=== PATIENT | male | born 1955 | race Caucasian/White ===

== ENCOUNTER → 2017-01-03 | Outpatient (REF) | payer BC ==
[2017-01-03 13:20] LABS: FOLATE 9.5 NG/ML (>5.4)
== END ==
LOC: M LAB REF 11:54
PROVIDERS: ATTEND Internal Medicine
DX: R41.0 Disorientation, unspecified (principal)

== ENCOUNTER 2017-05-02 15:22 | Emergency (ER) | payer BC, OTHER ==
[~2017-05-02] VITALS: Ht 182.9 cm; Wt 106.8 kg
[2017-05-02 15:23] VITALS: BP 138/87
[2017-05-02] MEDS ORDERED: LOSA50TA20 (15:33)
[2017-05-02] MEDS ORDERED: MULT1TAB18 PO (15:33)
[2017-05-02] MEDS ORDERED: ATOR1TAB21 (15:33)
[2017-05-02] MEDS ORDERED: VITA500T53 PO (15:33)
[2017-05-02] MEDS ORDERED: VITA2000 PO (15:33)
[2017-05-02] MEDS ORDERED: ASPI81CH PO (15:33)
[2017-05-02] MEDS ORDERED: CARB/LEVO (15:33)
[2017-05-02] MEDS ORDERED: LIDOCAINE W/EPINEPHRINE 1% 20ML VIAL SC ONE (15:45)
[2017-05-02] MEDS ORDERED: ADACEL/BOOSTRIX VACCINE (DIPHTH/PERTUSS/ACELL/TETANUS)0.5ML SYR (90715) IM ONE (15:45)
[2017-05-02] MEDS ORDERED: AUGM875T28 PO (16:16)
== END 2017-05-02 16:42 | disposition home or self-care (01) ==
LOC: M ED 15:22
DX: S91.011A Laceration without foreign body, right ankle, initial encounter (principal); W26.8XXA Contact with other sharp object(s), not elsewhere classified, initial encounter; Y92.099 Unspecified place in other non-institutional residence as the place of occurrence of the external cause; Y93.9 Activity, unspecified; Y99.9 Unspecified external cause status; I10 Essential (primary) hypertension; I73.9 Peripheral vascular disease, unspecified; Z79.82 Long term (current) use of aspirin; Z79.899 Other long term (current) drug therapy

== ENCOUNTER → 2017-05-23 | Outpatient (REF) | payer OTHER ==
[~2017-05-23] MED LIST: ASPI81CH PO; ATOR1TAB21; AUGM875T28 PO; CARB/LEVO; LOSA50TA20; MULT1TAB18 PO; VITA2000 PO; VITA500T53 PO
== END ==
LOC: M LAB REF 17:16
PROVIDERS: ATTEND Nurse Practitioner Family
DX: S81.811A Laceration without foreign body, right lower leg, initial encounter (principal); W18.30XA Fall on same level, unspecified, initial encounter; Y92.009 Unspecified place in unspecified non-institutional (private) residence as the place of occurrence of the external cause

== ENCOUNTER 2017-09-17 09:40 | Outpatient (RCR) | payer OTHER | END 2017-10-12 | LOC: M OT 09:40 → M ST 10-01 08:13 → M OT 10-08 08:46 → M ST 10-01 08:13 | DX: Z51.89 Encounter for other specified aftercare (principal); G20 Parkinson's disease ==

== ENCOUNTER 2017-10-14 08:39 | Outpatient (RCR) | payer OTHER | END 2017-11-12 | LOC: M OT 08:39 | DX: Z51.89 Encounter for other specified aftercare (principal); G20 Parkinson's disease ==

== ENCOUNTER → 2017-12-10 | Outpatient (REF) | payer OTHER ==
[2017-12-10 20:05] LABS: FOLATE 20.6 NG/ML; VITAMIN B12 LEVEL 754 PG/ML
== END ==
LOC: M LAB REF 18:19
DX: R41.3 Other amnesia (principal)

== ENCOUNTER → 2018-06-17 | Outpatient (REF) | payer MEDICARE, OTHER, SELFPAY ==
[2018-06-17 13:22] LABS: IRON (FE) 79 UG/DL (65-175); PERCENT SATURATION 28.7 % (19.7-50.0); TOTAL IRON BINDING CAPACITY 275 UG/DL (250-450)
== END ==
LOC: M LAB REF 12:15
DX: K91.2 Postsurgical malabsorption, not elsewhere classified (principal)
CPT/HCPCS: 83550

== ENCOUNTER 2019-02-23 08:58 | Day surgery (SDC) | payer MEDICARE ==
[~2019-02-23] VITALS: Ht 182.9 cm; Wt 113.1 kg
[~2019-02-23 08:58] MED LIST changes: -ASPI81CH PO; +ASPI81CH49 PO; +BIMA01SOL OD; +CARB25TA9 PO; -LOSA50TA20; +LOSA50TA88; +MULTCAP PO; +NS 1,000 ML IV ONE; +STOO1CAP PO; +VITA500T17 PO; -VITA500T53 PO
[2019-02-23] MEDS ORDERED: LIDOCAINE 2% INJ 100 MG/5 ML SDV (FOR ANES.) As Ordered ONE (10:47)
[2019-02-23] MEDS ORDERED: PROPOFOL 200 MG/20 ML VIAL As Ordered ONE ×2 (10:47→11:13)
--- NOTE | 2019-02-23 11:16 | ROOR ---
Patient Name: Marvin Carroll Procedure Date: 02/23/2019 10:39 AM Date of : 1955 Age: 63 Room: [facility] Gender: Male Note Status: Finalized Procedure: Colonoscopy to transverse colon(incomplete exam) Indications: Screening in patient at increased risk: Colorectal cancer in brother 60 or older Providers: Andrae Bailey MD Referring MD: TEE MAHAN JR, MD Requesting Provider: Medicines: Monitored Anesthesia Care Complications: No immediate complications. Procedure: Pre-Anesthesia Assessment: - The heart rate, respiratory rate, oxygen saturations, blood pressure, adequacy of pulmonary ventilation, and response to care were monitored throughout the procedure. The Colonoscope was introduced through the anus with the intention of advancing to the cecum. The scope was advanced to the transverse colon before the procedure was aborted. Medications were given. The patient tolerated the procedure well. The quality of the bowel preparation was fair. The colonoscopy was aborted due to significant looping. Applying abdominal pressure did not allow for the successful completion of the procedure. Findings: The perianal and digital rectal examinations were normal. Non-bleeding internal hemorrhoids were found during retroflexion. The hemorrhoids were small and Grade I (internal hemorrhoids that do not prolapse). Semi-liquid stool was found in the entire colon, precluding visualization. The exam was otherwise without abnormality. Impression: - Preparation of the colon was fair. - Non-bleeding internal hemorrhoids. - Stool in the entire examined colon. - The examination was otherwise normal. - No specimens collected. - The exam was suboptimal due to patient preparation. Recommendation: - Discharge patient to home. - Continue present medications. - Repeat colonoscopy in 5 years for screening purposes. - Perform a barium enema at appointment to be scheduled. Andrae Bailey MD Andrae Bailey MD 02/23/2019 11:16:12 AM Electronically signed by Andrae Bailey MD Number of Addenda: 0 Note Initiated On: 02/23/2019 10:39 AM Estimated Blood Loss: Estimated blood loss: none.
[2019-02-23 11:45] VITALS: BP 130/70
== END 2019-02-23 12:16 | disposition home or self-care (01) ==
LOC: M OPP 08:58
PROVIDERS: ATTEND Internal Medicine Gastroenterology
DX: Z12.11 Encounter for screening for malignant neoplasm of colon (principal); Z80.0 Family history of malignant neoplasm of digestive organs; K64.0 First degree hemorrhoids

== ENCOUNTER → 2019-06-22 | Outpatient (REF) | payer MEDICARE ==
[~2019-06-22] MED LIST changes: -NS 1,000 ML IV ONE
[2019-06-22 14:12] LABS: FOLATE 15.7 NG/ML
== END ==
LOC: M LAB REF 13:31
PROVIDERS: ATTEND Internal Medicine
DX: Z98.84 Bariatric surgery status (principal); Z79.82 Long term (current) use of aspirin; Z79.899 Other long term (current) drug therapy

== ENCOUNTER → 2019-12-23 | Outpatient (CLI) | payer MEDICARE | LOC: M PT 10:27 | PROVIDERS: ATTEND Orthopaedic Surgery | DX: Z01.818 Encounter for other preprocedural examination (principal); M13.861 Other specified arthritis, right knee ==

== ENCOUNTER 2020-03-13 16:30 | Inpatient (IN) | payer MEDICARE ==
[~2020-03-13] VITALS: Ht 182.9 cm; Wt 117.5 kg
[~2020-03-13 16:30] MED LIST changes: -ATOR1TAB21; +ATOR1TAB21 PO; -BIMA01SOL OD; +BIMA01SOL OU; +COLA100C5 PO; -LOSA50TA88; +LOSA50TA88 PO; +MELA10CA PO; +SM M250T PO; +VITAD1000T PO
--- NOTE | 2020-03-17 14:31 | HPE ---
DATE OF ADMISSION: 03/20/2020 ATTENDING PHYSICIAN: Dr. Harlan Boyce CHIEF COMPLAINT: Left knee pain and stiffness HISTORY: This is a pleasant 64-year-old male patient with progressively worsening left knee pain and stiffness that has failed to improve with conservative treatment. He has elected for surgical intervention for his continued symptoms. He has been consented for left total knee arthroplasty by Dr. Harlan Boyce. ALLERGIES: No known drug allergies. Current medications. Vitamin B12 500 mg one by mouth daily, vitamin D 3-1000 units one by mouth daily, aspirin 81 mg one by mouth daily, multivitamin one by mouth daily, losartan 25 mg half tablet one by mouth daily, stool softener 100 mg one daily, atorvastatin 20 mg one by mouth daily, carbidopa/levodopa 25/100 mg three times daily. PAST MEDICAL HISTORY: 1. Type 2 diabetes 2. Parkinson's disease. PAST SURGICAL HISTORY: Gastric bypass left shoulder arthroscopy, appendectomy, left knee scope. FAMILY HISTORY: Noncontributory. SOCIAL HISTORY: The patient is an occasional alcohol user, does not use any tobacco or nicotine products REVIEW OF SYSTEMS: Denies fever, chills, chest pain, shortness of breath, nausea, vomiting, diarrhea. Denies recent upper respiratory or urinary tract infection symptoms. PHYSICAL EXAMINATION: Height 6 feet, weight 260, temperature 98.6, blood pressure 118/72, pulse 56, respirations 16. He is normocephalic, atraumatic, in no acute distress. Neck is supple and nontender with no lymphadenopathy or JVD. S1-S2 auscultated with no murmurs, rubs or gallops. Lungs Clear to auscultation bilaterally with no wheezes, rales, rhonchi. Abdomen: Soft, nontender. The left knee shows intact overlying skin with no rashes or obvious deformity. Left lower extremity is well perfused with intact neurovascular status. LABORATORY DATA: White count 6.5, red blood count 4.75, hemoglobin 14, hematocrit 41.5, ESR 4, BUN 16, creatinine 0.79, PT 14.6, INR 1.17. CHEST X-RAY: No acute cardiopulmonary disease. ELECTROCARDIOGRAM (EKG): Normal sinus rhythm, LA conduction disturbance, first-degree AV block, left axis deviation, left bundle branch block. The patient had medical clearance appointment with Dr. Cook on 03/16/2020. This is not yet available for review on the chart awaiting medical optimization. IMPRESSION: Symptomatic left knee degenerative changes. PLAN: Consented for left knee total arthroplasty with Dr. Harlan Boyce. Pending optimization by Dr. Cook. He has been counseled to discontinue his daily 81 mg aspirin and has discussed what medications he needs to take on the morning of surgery. He will be nothing by mouth after midnight the night before the procedure.
[2020-03-20] VITALS (7 sets, daily range): BP systolic 111–154; BP diastolic 72–84
--- NOTE | 2020-03-20 12:24 | CR.PDOC ---
General Date of Consultation: Mar 20, 2020 Consultation REASON FOR CONSULTATION/CHIEF COMPLAINT: Medical management Who presented to [facility] for an elective orthopedic procedure HISTORY OF PRESENT ILLNESS: Patient is a 64-year-old male with a past medical history of Parkinsons disease, HTN, DLP and NIDDM2, who was presented to [facility] for an elective orthopedic procedure. Patient also Dr. Boyce for the last 1 year and has failed conservative measures. He was scheduled for an elective procedure and has received outpatient medical clearance via his primary care provider, Dr. Cook. Hospital services consult is for medical management. Patient seen pre-operatively. He denies any chest pain, shortness of breath, palpitations, nausea, vomiting, abdominal pain, constipation, diarrhea, or urinary discomfort. He denies any recent fevers or chills. Reports his appetite is normal and has had some weight gain. ALLERGIES: Please see below. HOME MEDICATIONS: Please see below. PAST MEDICAL HISTORY: Parkinsons disease, HTN, DLP and NIDDM2 PAST SURGICAL HISTORY: Gastric bypass 2014 Torn rotator cuff on left, status post arthroscopy Appendectomy Left knee arthroscopy FAMILY HISTORY: - Family history was reviewed and is noncontributory to this hospitalization SOCIAL HISTORY: - Denies the use of tobacco or illicit drugs; patient reports social alcohol use - Denies recent travel or sick contacts - Lives with - Occupation; retired director software quality assurance REVIEW OF SYSTEMS: 10 point review of systems complete, all negative otherwise stated in HPI PHYSICAL EXAMINATION: - Vitals: BP 178/102, HR 69, RR 18, Sat 98%RA, Temp 97.2F - General: Lying in bed, No acute distress, Speaking in full sentences, AAOx3 - HEENT: NC, AT, PERRLA, EOMI - CVS: RRR, +S1S2, - Murmurs / rubs / gallops - Lungs: Fair air entry bilaterally, No appreciable wheezing / rales / rhonchi - Abdomen: Soft, Non-distended, Non-tender - Extremities: No lower extremity edema, No calf tenderness - Neuro: No focal motor or sensory deficit - Skin: No visible rashes LABORATORY DATA: Please see below. ASSESSMENT/PLAN: Elective total left knee arthroplasty - Patient is presented to [facility] for an elective orthopedic procedure - Patient has reported received outpatient medical clearance from his primary care provider, Dr. Cook - Pain control, anticoagulation and physical therapy at the direction of orthopedic surgery Parkinsons disease - c/w Carbidopa / Levodopa HTN - c/w Losartan DLP - c/w Atorvastatin NIDDM2 - Will start insulin sliding scale Vitamin D deficiency - c/w supplementation DVT prophylaxis - As per orthopedic surgery Vital Signs/I&O Vital Signs Date Time Temp Pulse Resp B/P (MAP) Pulse Ox O2 Delivery O2 Flow Rate FiO2 03/20/20 11:58 97.2 69 18 178/102 (127) 98 Room Air Allergies Coded Allergies: No Known Allergies (Unverified , 03/09/20) Home Medications Scheduled Aspirin (Aspirin) 81 Mg Chw, 81 MG PO DAILY, (Reported) Atorvastatin Calcium (Atorvastatin Calcium) 20 Mg Tab, PO DAILY, #30 (Reported) Bimatoprost (Lumigan) 0.01% 2.5ML Drops, 1 DROP OU QHS for 30 Days, #2.5 (Reported) Carbidopa/Levodopa (Carbidopa-Levodopa 25-100 Tab) 1 Each Tablet, 1 TAB PO TID, (Reported) Cholecalciferol (Vitamin D3) (Vitamin D3) 1,000 Unit Tablet, 2,000 UNITS PO DAILY, (Reported) Cyanocobalamin (Vitamin B-12) (Vitamin B-12) 500 Mcg Tab, 2,500 MCG PO DAILY, (Reported) Docusate Sodium (Colace) 100 Mg Capsule, 100 MG PO DAILY, (Reported) Losartan Potassium (Losartan Potassium) 50 Mg Tab, 25 MG PO DAILY, #15 (Reported) Magnesium (Magnesium) 250 Mg Tablet, 250 MG PO DAILY, (Reported) Melatonin (Melatonin) 10 Mg Capsule, 20 MG PO QHS, (Reported) Multivitamin (Multivitamins) 1 Each Capsule, 1 CAP PO DAILY, (Reported) RIVER KWONG MD Mar 20, 2020 12:24
[2020-03-20] MEDS ORDERED: GLUCAGON INJ 1MG VIAL SC PRN (12:30)
[2020-03-20] MEDS ORDERED: DEXTROSE 50% 50 ML SYRINGE IV PRN (12:30)
[2020-03-20] MEDS ORDERED: GLUCOSE 4GM CHEW TABLET PO PRN (12:30)
[2020-03-20] MEDS ORDERED: ONDANSETRON 4MG/2ML VIAL As Ordered ONE (12:31)
[2020-03-20] MEDS ORDERED: LIDOCAINE 2% 100MG/5ML SDV (FOR ANES.) As Ordered ONE (12:31)
[2020-03-20] MEDS ORDERED: propofoL 200 MG/20 ML VIAL As Ordered ONE ×2 (12:31→14:41)
[2020-03-20] MEDS ORDERED: MIDAZOLAM INJ 2MG/2ML VIAL (J2250 PER 1MG) As Ordered ONE ×2 (12:31→13:26)
[2020-03-20] MEDS ORDERED: fentaNYL 100 MCG/2 ML INJECTION (J3010) As Ordered ONE ×2 (12:31→13:26)
[2020-03-20] MEDS ORDERED: PILL CUTTER 1 EACH XX PRN (12:45)
[2020-03-20] MEDS ORDERED: ceFAZolin SOD 2 GM in IV 1 EA IV ONE (12:45)
[2020-03-20] MEDS ORDERED: ceFAZolin SOD 1 GM in D5W MINI-BAG PLUS 50 ML IV ONE (12:45)
[2020-03-20] MEDS ORDERED: TRANEXAMIC ACID 100 MG/ML 10ML VIAL As Ordered ONE (13:46)
[2020-03-20] MEDS ORDERED: EPINEPHrine INJ 1 MG/ML 1ML AMP As Ordered ONE (13:47)
[2020-03-20] MEDS ORDERED: ceFAZolin 1GM VIAL (J0690 PER 500MG) As Ordered ONE (13:47)
[2020-03-20] MEDS ORDERED: BUPIVACAINE LIPOSOME/PF 1.3% 20ML VIAL (13.3MG/ML)(EXPAREL)(C9290 PER1MG) As Ordered ONE (13:47)
[2020-03-20] MEDS ORDERED: MIDAZOLAM INJ 2MG/2ML VIAL (J2250 PER 1MG) IV PRN (14:15)
[2020-03-20] MEDS ORDERED: fentaNYL 100 MCG/2 ML INJECTION (J3010) IV PRN ×2 (14:15→15:45)
[2020-03-20] MEDS ORDERED: ACETAMINOPHEN 1000MG 100ML IV BTL (OFIRMEV) (J0131 PER 10MG) As Ordered ONE (14:41)
[2020-03-20] MEDS ORDERED: LIDOCAINE 1% MDV 20ML VIAL ONE (15:42)
[2020-03-20] MEDS ORDERED: ROPIvacaine 0.5% 30ML INJECTION (J2795 PER 1MG) ONE (15:42)
[2020-03-20] MEDS ORDERED: dexameTHASONE 10MG/1ML VIAL PRES.FREE (J1100 PER 1MG) ONE (15:42)
[2020-03-20] MEDS ORDERED: oxyCODONE 5MG TAB PO PRN (15:45)
[2020-03-20] MEDS ORDERED: ONDANSETRON 4MG/2ML VIAL IV PRN ×2 (15:45→16:00)
[2020-03-20] MEDS ORDERED: LR 1,000 ML IV SCH (15:45)
[2020-03-20] MEDS ORDERED: MORPHINE 4 MG/ML 1ML VIAL/SYRINGE (J2270) IV PRN (16:00)
[2020-03-20] MEDS ORDERED: ACETAMINOPHEN TAB 650MG DOSE (2X325MG) PO PRN (16:00)
[2020-03-20] MEDS ORDERED: PERCOCET 5MG/325MG TAB PO PRN (16:00)
[2020-03-20] MEDS ORDERED: MORPHINE 2 MG/ML 1ML VIAL (J2270) IV PRN (16:00)
[2020-03-20] MEDS: LR 1,000 ML IV SCH (16:15)
[2020-03-20] MEDS: HumaLOG INSULIN (NovoLOG) PER UNIT SC SCH (17:30)
[2020-03-20] MEDS: SINEMET 25-100 MG TAB PO SCH (18:35)
[2020-03-20] MEDS: ATORVASTATIN 20 MG TAB PO SCH (18:35)
[2020-03-20] MEDS ORDERED: LATANOPROST 0.005% OPHTH SOLN 2.5 ML OU SCH (21:00)
[2020-03-20] MEDS ORDERED: HumaLOG INSULIN (NovoLOG) PER UNIT SC SCH (21:00)
[2020-03-20] MEDS: ceFAZolin SOD 2 GM in IV 1 EA IV SCH (21:28)
[2020-03-20] MEDS: ceFAZolin SOD 1 GM in D5W MINI-BAG PLUS 50 ML IV SCH (22:14)
[2020-03-20] MEDS: PERCOCET 5MG/325MG TAB PO PRN (22:42)
[2020-03-21 02:00] VITALS: BP 123/74
--- NOTE | 2020-03-21 02:11 | REP ---
LEFT KNEE, TWO VIEWS: Two views of the left knee performed. Total knee prosthesis is placed and is in good position. Osseous structures are well aligned. Metallic skin graciela are seen anteriorly. Electronically Signed by Raymundo Cassidy MD 03/22/2020 09:45 P
[2020-03-21] MEDS: PERCOCET 5MG/325MG TAB PO PRN ×2 (02:39→08:37)
[2020-03-21] MEDS: ceFAZolin SOD 2 GM in IV 1 EA IV SCH (05:25)
[2020-03-21] MEDS: LR 1,000 ML IV SCH (05:35)
[2020-03-21 06:00] VITALS: BP 125/76
[2020-03-21] MEDS: SINEMET 25-100 MG TAB PO SCH ×2 (06:12→12:44)
[2020-03-21] MEDS: ceFAZolin SOD 1 GM in D5W MINI-BAG PLUS 50 ML IV SCH (06:13)
[2020-03-21 06:57] LABS: BASO % 0.1 % (0.0-1.0); HEMOGLOBIN 12.3 g/dl (13.5-17.5); LYMPH # 1.2 10^3/uL (1.5-5.0); LYMPH % 10.9 % (24.0-44.0); MEAN CORPUSCULAR HEMOGLOBIN 29.2 pg (27.0-33.0); MEAN CORPUSCULAR HGB CONC 33.2 g/dl (32.0-36.5); MEAN CORPUSCULAR VOLUME 87.9 fl (80.0-96.0); MONO % 8.7 % (0.0-5.0); NEUTROPHILS # 8.9 10^3/uL (1.5-8.5); NEUTROPHILS % 79.9 % (36.0-66.0); PLATELET COUNT, AUTOMATED 196 10^3/uL (150-450); RED BLOOD COUNT 4.21 10^6/uL (4.30-6.10); WHITE BLOOD COUNT 11.2 10^3/uL (4.0-10.0)
[2020-03-21] MEDS ORDERED: XARE10TA PO (07:11)
[2020-03-21] MEDS ORDERED: LEVA1TAB2 PO (07:11)
[2020-03-21] MEDS ORDERED: PERC5TAB12 PO (07:11)
[2020-03-21 07:23] LABS: BLOOD UREA NITROGEN 21 MG/DL (7-18); CALCIUM LEVEL 8.6 MG/DL (8.8-10.2); CARBON DIOXIDE LEVEL 26 MEQ/L (21-32); CHLORIDE LEVEL 107 MEQ/L (98-107); CREATININE FOR GFR 0.79 MG/DL (0.70-1.30); GLOMERULAR FILTRATION RATE > 60.0 (>49); GLUCOSE, FASTING 123 MG/DL (70-100); MAGNESIUM LEVEL 1.8 MG/DL (1.8-2.4); PHOSPHORUS LEVEL 3.9 MG/DL (2.5-4.9); POTASSIUM SERUM 4.2 MEQ/L (3.5-5.1); SODIUM LEVEL 139 MEQ/L (136-145)
[2020-03-21] MEDS: HumaLOG INSULIN (NovoLOG) PER UNIT SC SCH ×2 (07:30→12:00)
[2020-03-21 08:36] VITALS: BP 125/76
[2020-03-21] MEDS: ATORVASTATIN 20 MG TAB PO SCH (08:37)
[2020-03-21] MEDS ORDERED: VITAMIN D 1,000 INTERNATIONAL UNITS TABLET PO SCH (09:00)
[2020-03-21] MEDS ORDERED: MIRALAX *UNIT DOSE* 17GM PACKET PO SCH (09:00)
[2020-03-21] MEDS ORDERED: CYANOCOBALAMIN 500 MCG TAB PO SCH (09:00)
[2020-03-21] MEDS ORDERED: LOSARTAN 50MG TABLET PO SCH (09:00)
[2020-03-21] MEDS ORDERED: DOCUSATE SODIUM 100 MG CAP PO SCH (09:00)
[2020-03-21] MEDS ORDERED: MULTIVITAMINS/MINERALS THERAP 1 TAB PO SCH (09:00)
[2020-03-21] MEDS ORDERED: MOM 30ML SUSPENSION UDC PO SCH (09:00)
[2020-03-21 10:00] VITALS: BP 124/79
[2020-03-21] MEDS ORDERED: RIVAROXABAN 10 MG TAB (XARELTO) PO SCH (18:00)
[2020-03-22] MEDS ORDERED: LevoFLOXacin 500 MG TABLET PO SCH (06:00)
--- NOTE | 2020-03-23 17:56 | RO ---
DATE OF PROCEDURE: 03/20/2020 PREOPERATIVE DIAGNOSIS: Left knee osteoarthritis. POSTOPERATIVE DIAGNOSIS: (dictation cut off). PROCEDURE: Left total knee arthroplasty using an Attune rotating platform posterior stabilized size 6 femur, size 6 tibia, 10 polyethylene, 38 patellar button. SURGEON: Harlan Boyce MD ONLINE MERCHANDISING MANAGER: ENMA Diaz ANESTHESIA: Spinal ESTIMATED BLOOD LOSS: Less than 50 mL. COMPLICATIONS: None. INDICATIONS: 64-year-old morbidly obese gentleman with left knee pain and severe arthritis. He wished to go ahead with a knee replacement. DESCRIPTION OF PROCEDURE: The patient was taken to the operating room, placed in supine position after spinal anesthesia was induced. The left lower extremity was prepped and draped in the usual sterile fashion. A time-out was performed. I then created a longitudinal incision after we inflated the tourniquet, sharply dissected down through the subcutaneous tissue, controlled hemostasis with the cautery, did a medial parapatellar arthrotomy per routine, everted the patella, flexed the knee up and removed osteophytes with a rongeur, followed by the intramedullary guide set at 5 degrees of valgus and 9 mm cut. The distal femoral cut was made in the usual fashion, protecting soft tissues. I sized the femur to be a 6 and made the remaining cuts off the cutting block. The excess bone was removed. I then prepared the tibia. The tibial alignment guide was placed, and the appropriate amount of valgus and posterior slope were dialed in. This was pinned in place about 4 mm off the low side. I then made the proximal tibial cut, and the medial side was quite sclerotic. The [employer] group leader was then used for removal of soft tissue and bone from either side of the knee. The box cutting guide was then secured, and the remaining three cuts were made for the box cut. I had anticipated using a posterior stabilized due to his significant deformity and translation of his knee on the x-ray. I then prepared the tibia, size 6 tray fit nicely. This was secured down, drilled, broached, and the trial components were then placed. I was very pleased with the size 10 polyethylene, the alignment position was excellent. I then freehand cut the patella, removing about 7 or 8 mm of bone, sized to be a 38. Drill holes were placed in the end of the femur. I then removed the trial components and irrigated copiously, placed the Exparel in the deep tissues. The regional administrative assistant prepared the bone cement in the modern technique. Then cemented on all the components, placed the polyethylene in, cemented on the patellar button, which had been trialed previously and tracked very nicely with a size 38. All excess bone cement had been removed. I irrigated again copiously as I had multiple times prior to this. We then removed the patellar clamp once the cement had hardened. I closed the deep layer with #1 Vicryl suture and running Stratafix suture for a watertight closure. Put the knee through a range of motion, and the patella was tracking nicely, and there was no clicking. There was excellent motion and stability. I let the tourniquet down. Once the cement had hardened, I irrigated and then closed the subcu with #2-0 Vicryl, the skin with graciela. A sterile dressing was applied, and he was taken to the recovery room in stable condition. There were no known complications. The plan will be routine postop. The regional administrative assistant was instrumental in holding retractors and assisting in mixing the bone cement and assisting in wound closure. This is coded as an unusually difficult procedure. The patient had significant obesity. He had significant translation of his tibia on this femur. This made balancing the tissues more difficult. Exposure was more difficult.
== END 2020-03-21 14:05 | disposition home or self-care (01) | DRG 470 ==
LOC: M OR 03-20 11:15 → M MS5PR 03-20 16:05
PROVIDERS: ADMIT Orthopaedic Surgery; ATTEND Orthopaedic Surgery
PROC: 0SRD0J9 Replacement of Left Knee Joint with Synthetic Substitute, Cemented, Open Approach (ICD-10-PCS; principal; 2020-03-20 14:15)
DX: M17.12 Unilateral primary osteoarthritis, left knee (principal); E11.9 Type 2 diabetes mellitus without complications; G20 Parkinson's disease; Z79.899 Other long term (current) drug therapy; Z79.82 Long term (current) use of aspirin; I10 Essential (primary) hypertension; E55.9 Vitamin D deficiency, unspecified

== ENCOUNTER → 2020-03-15 | Outpatient (CLI) | payer MEDICARE ==
[~2020-03-15] MED LIST changes: +LEVA1TAB2 PO; +PERC5TAB12 PO; +XARE10TA PO
[2020-03-15 14:59] LABS: HEMATOCRIT 41.5 % (42.0-52.0); MEAN CORPUSCULAR HEMOGLOBIN 29.5 pg (27.0-33.0); MEAN CORPUSCULAR HGB CONC 33.7 g/dl (32.0-36.5); MEAN CORPUSCULAR VOLUME 87.4 fl (80.0-96.0); PLATELET COUNT, AUTOMATED 216 10^3/uL (150-450); RED BLOOD COUNT 4.75 10^6/uL (4.30-6.10); WHITE BLOOD COUNT 6.5 10^3/uL (4.0-10.0)
[2020-03-15 15:13] LABS: INR 1.17; PROTHROMBIN TIME 14.6 SECONDS (11.8-14.0)
[2020-03-15 15:21] LABS: ALBUMIN 3.6 GM/DL (3.2-5.2); ALT/SGPT 12 U/L (12-78); BILIRUBIN,TOTAL 0.6 MG/DL (0.2-1.0); BLOOD UREA NITROGEN 16 MG/DL (7-18); CALCIUM LEVEL 8.8 MG/DL (8.8-10.2); CARBON DIOXIDE LEVEL 31 MEQ/L (21-32); CHLORIDE LEVEL 106 MEQ/L (98-107); CREATININE FOR GFR 0.79 MG/DL (0.70-1.30); GLOMERULAR FILTRATION RATE > 60.0 (>49); GLUCOSE, FASTING 120 MG/DL (70-100); POTASSIUM SERUM 3.9 MEQ/L (3.5-5.1); SODIUM LEVEL 141 MEQ/L (136-145); TOTAL PROTEIN 7.1 GM/DL (6.4-8.2)
[2020-03-15 15:28] LABS: ERYTHROCYTE SEDIMENTATION RATE 4 mm/hr (0-20)
--- NOTE | 2020-03-15 16:12 | REP ---
REASON: Preop. FINDINGS: The superior mediastinal structures are midline. The cardiac silhouette is unremarkable in size, shape, and position. The diaphragmatic surfaces of the lungs are regular, and the costophrenic angles are clear. The pulmonary gutierrez are clear. The imaged osseous structures are intact. IMPRESSION: There is no acute cardiopulmonary disease. Electronically Signed by Mark Hodgson DO 03/15/2020 04:56 P
--- NOTE | 2020-03-16 08:42 | ECGEPIP ---
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 First-degree AV block. Left axis deviation. Left bundle branch block No prior tracing for comparison. Clincal correlation advised Electronically Signed on 03-16-2020 8:41:43 EDT by Miguel Paul
== END ==
LOC: M LAB 14:29
PROVIDERS: ATTEND Orthopaedic Surgery
DX: Z01.818 Encounter for other preprocedural examination (principal); M17.12 Unilateral primary osteoarthritis, left knee

== ENCOUNTER → 2020-03-17 | Outpatient (CLI) | payer MEDICARE | LOC: M LABSMTC 10:55 | PROVIDERS: ATTEND Anesthesiology | DX: Z01.818 Encounter for other preprocedural examination (principal); Z11.59 Encounter for screening for other viral diseases ==

== ENCOUNTER → 2020-03-28 | Outpatient (CLI) | payer MEDICARE ==
[~2020-03-28] MED LIST changes: +D31000TA2 PO; -VITAD1000T PO
[2020-03-28 11:55] LABS: BASO # 0.1 10^3/uL (0.0-0.2); BASO % 0.5 % (0.0-1.0); EOS # 0.2 10^3/uL (0.0-0.5); EOS % 1.5 % (0.0-3.0); HEMATOCRIT 36.7 % (42.0-52.0); HEMOGLOBIN 11.8 g/dl (13.5-17.5); LYMPH # 1.4 10^3/uL (1.5-5.0); LYMPH % 14.3 % (24.0-44.0); MEAN CORPUSCULAR HEMOGLOBIN 28.6 pg (27.0-33.0); MEAN CORPUSCULAR HGB CONC 32.2 g/dl (32.0-36.5); MEAN CORPUSCULAR VOLUME 89.1 fl (80.0-96.0); MONO # 0.9 10^3/uL (0.0-0.8); MONO % 8.7 % (0.0-5.0); NEUTROPHILS # 7.3 10^3/uL (1.5-8.5); NEUTROPHILS % 74.3 % (36.0-66.0); PLATELET COUNT, AUTOMATED 265 10^3/uL (150-450); RED BLOOD COUNT 4.12 10^6/uL (4.30-6.10); WHITE BLOOD COUNT 9.9 10^3/uL (4.0-10.0)
[2020-03-28 13:33] LABS: ERYTHROCYTE SEDIMENTATION RATE 43 mm/hr (0-20)
== END ==
LOC: M PLALAB 11:05
PROVIDERS: ATTEND Physician Assistant Surgical
DX: M79.662 Pain in left lower leg (principal)

== ENCOUNTER → 2020-03-31 | Outpatient (CLI) | payer MEDICARE | LOC: M PLALAB 09:14 | PROVIDERS: ATTEND Physician Assistant Surgical | DX: Z47.1 Aftercare following joint replacement surgery (principal) ==

== ENCOUNTER 2020-04-14 22:46 | Emergency (ER) | payer MEDICARE ==
[~2020-04-14] VITALS: Ht 177.8 cm; Wt 118.2 kg
[~2020-04-14 22:46] MED LIST changes: -D31000TA2 PO; +VITAD1000T PO
[2020-04-15] MEDS ORDERED: LACTULOSE 20 GM/30 ML SYRUP UD PO ONE
[2020-04-15] MEDS ORDERED: GLYCERIN ADULT SUPP PR ONE (01:00)
[2020-04-15 02:11] VITALS: BP 156/90
== END 2020-04-15 02:16 | disposition home or self-care (01) ==
LOC: M ED 22:46
DX: K59.00 Constipation, unspecified (principal); I10 Essential (primary) hypertension; E78.00 Pure hypercholesterolemia, unspecified; E11.9 Type 2 diabetes mellitus without complications; Z86.718 Personal history of other venous thrombosis and embolism; G20 Parkinson's disease; Z98.84 Bariatric surgery status

== ENCOUNTER → 2020-05-31 | Outpatient (CLI) | payer MEDICARE ==
[~2020-05-31] MED LIST changes: +D31000TA2 PO; -VITAD1000T PO
== END ==
LOC: M LABSMTC 12:45
PROVIDERS: ATTEND Ophthalmology
DX: Z20.828 Contact with and (suspected) exposure to other viral communicable diseases (principal)
CPT/HCPCS: C9803; U0003

== ENCOUNTER → 2020-09-15 | Outpatient (REF) | payer MEDICARE ==
[2020-09-15 13:29] LABS: IRON (FE) 56 UG/DL (65-175); PERCENT SATURATION 17.3 % (19.7-50.0); TOTAL IRON BINDING CAPACITY 323 UG/DL (250-450)
[2020-09-15 13:36] LABS: FOLATE 20.6 NG/ML; VITAMIN B12 LEVEL > 2000 PG/ML
== END ==
LOC: M LAB REF 12:05
PROVIDERS: ATTEND Internal Medicine
DX: Z98.84 Bariatric surgery status (principal)

== ENCOUNTER 2020-11-20 19:10 | Emergency (ER) | payer MEDICARE ==
[~2020-11-20] VITALS: Ht 182.9 cm; Wt 123.5 kg
[2020-11-20 20:10] LABS: BASO # 0.1 10^3/uL (0.0-0.2); BASO % 0.9 % (0.0-1.0); EOS # 0.2 10^3/uL (0.0-0.5); EOS % 2.6 % (0.0-3.0); HEMATOCRIT 42.8 % (42.0-52.0); HEMOGLOBIN 13.8 g/dl (13.5-17.5); LYMPH # 2.3 10^3/uL (1.5-5.0); LYMPH % 39.6 % (24.0-44.0); MEAN CORPUSCULAR HEMOGLOBIN 28.2 pg (27.0-33.0); MEAN CORPUSCULAR HGB CONC 32.2 g/dl (32.0-36.5); MEAN CORPUSCULAR VOLUME 87.3 fl (80.0-96.0); MONO # 0.6 10^3/uL (0.0-0.8); MONO % 9.7 % (0.0-5.0); NEUTROPHILS # 2.7 10^3/uL (1.5-8.5); PLATELET COUNT, AUTOMATED 195 10^3/uL (150-450); WHITE BLOOD COUNT 5.8 10^3/uL (4.0-10.0)
[2020-11-20 20:34] LABS: ALBUMIN 3.8 GM/DL (3.2-5.2); ALT/SGPT 9 U/L (12-78); BILIRUBIN,DIRECT 0.2 MG/DL (0.0-0.2); BILIRUBIN,TOTAL 0.5 MG/DL (0.2-1.0); BLOOD UREA NITROGEN 22 MG/DL (7-18); CALCIUM LEVEL 9.3 MG/DL (8.8-10.2); CARBON DIOXIDE LEVEL 28 MEQ/L (21-32); CHLORIDE LEVEL 106 MEQ/L (98-107); CK-MB VALUE MASS 1.8 NG/ML (<3.6); CPK CREATINE PHOSPHOKINASE 128 U/L (39-308); GLOMERULAR FILTRATION RATE > 60.0 (>49); GLUCOSE, FASTING 93 MG/DL (70-100); LIPASE 198 U/L (73-393); MB/CK RELATIVE INDEX 1.41 (< OR =4); POTASSIUM SERUM 4.2 MEQ/L (3.5-5.1); SODIUM LEVEL 141 MEQ/L (136-145); TOTAL PROTEIN 7.2 GM/DL (6.4-8.2); TROPONIN I < 0.02 NG/ML (< 0.10)
--- NOTE | 2020-11-20 20:48 | REPVR ---
PROCEDURE INFORMATION: Exam: XR Chest, 1 View Exam date and time: 11/20/2020 8:16 PM Age: 65 years old Clinical indication: Chest pain; Type not specified TECHNIQUE: Imaging protocol: XR of the chest Views: 1 view. COMPARISON: CR Chest, 2 view PA, Lat 03/15/2020 3:01 PM FINDINGS: Lungs: Unremarkable. No consolidation. Pleural spaces: Unremarkable. No pleural effusion. No pneumothorax. Heart/Mediastinum: Stable mild cardiomegaly. Diaphragm: Stable eventration of the left hemidiaphragm. Bones/joints: Unremarkable. IMPRESSION: Stable chest. No acute findings. Electronically signed by: Balaji Sage On 11/20/2020 20:48:09 PM
[2020-11-20 22:38] LABS: CK-MB VALUE MASS 1.4 NG/ML (<3.6); CPK CREATINE PHOSPHOKINASE 113 U/L (39-308); MB/CK RELATIVE INDEX 1.24 (< OR =4); TROPONIN I < 0.02 NG/ML (< 0.10)
[2020-11-20 22:45] VITALS: BP 153/84
--- NOTE | 2020-11-21 08:57 | ECGEPIP ---
[facility] - ED Test Date: 2020-11-20 Pat Name: MICKI LESTER Department: Room: - Gender: Male Personal Banking Officer: DIANA : 1955 Requested By: MARY ELLEN Parham Order Number: [id number] Reading MD: Radha Kang Measurements Intervals [place] Rate: 76 P: 42 IN: 222 QRS: -32 QRSD: 163 T: 118 QT: 424 QTc: 478 Interpretive Statements SINUS RHYTHM WITH FIRST DEGREE AV BLOCK MARKED LEFT AXIS DEVIATION LEFT BUNDLE BRANCH BLOCK SIMILAR 03/15/20 Electronically Signed on 11-21-2020 8:56:59 EST by Radha Kang
--- NOTE | 2020-11-21 08:59 | ECGEPIP ---
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
== END 2020-11-20 23:03 | disposition home or self-care (01) ==
LOC: M ED 19:10
DX: R07.89 Other chest pain (principal); I44.7 Left bundle-branch block, unspecified; I10 Essential (primary) hypertension; I25.10 Atherosclerotic heart disease of native coronary artery without angina pectoris; G20 Parkinson's disease; Z79.899 Other long term (current) drug therapy; Z98.84 Bariatric surgery status; Z95.1 Presence of aortocoronary bypass graft

== ENCOUNTER 2021-05-25 08:26 | Outpatient (RCR) | payer MEDICARE ==
[~2021-05-25 08:26] MED LIST changes: +DOCU240C41 PO; -STOO1CAP PO
== END 2021-06-12 ==
LOC: M ST 08:26
PROVIDERS: ATTEND Physician Assistant Medical
DX: G20 Parkinson's disease (principal); R47.89 Other speech disturbances

== ENCOUNTER → 2021-06-20 | Outpatient (REF) | payer MEDICARE ==
[2021-06-20 22:38] LABS: APPEARANCE, URINE CLOUDY (CLEAR); BACTERIA, URINE AUTO 2+ (NEGATIVE); BILIRUBIN, URINE AUTO NEGATIVE (NEGATIVE); BLOOD, URINE BLOOD 3+ (NEGATIVE); COLOR, URINE YELLOW (YELLOW); GLUCOSE, URINE (UA) AUTO NEGATIVE (NEGATIVE); KETONE, URINE AUTO NEGATIVE (NEGATIVE); LEUKOCYTE ESTERASE, URINE AUTO 3+ (NEGATIVE); NITRITE, URINE AUTO POSITIVE (NEGATIVE); PROTEIN, URINE AUTO 2+ mg/dL (NEGATIVE); RBC, URINE AUTO TNTC /HPF (0-3); SPECIFIC GRAVITY URINE AUTO 1.018 (1.002-1.035); SQUAMOUS EPITHELIAL CELL UR AU 3 /HPF (0-6); WBC, URINE AUTO TNTC /HPF (0-3)
== END ==
LOC: M LAB REF 22:10
PROVIDERS: ATTEND Physician Assistant
DX: R30.0 Dysuria (principal)

== ENCOUNTER 2021-07-09 12:28 | Outpatient (RCR) | payer MEDICARE | END 2021-07-12 | LOC: M ST 12:28 | PROVIDERS: ATTEND Physician Assistant Medical | DX: G20 Parkinson's disease (principal); R49.0 Dysphonia ==

== ENCOUNTER → 2021-07-11 | Outpatient (REF) | payer MEDICARE | LOC: M LAB REF 16:38 | PROVIDERS: ATTEND Nurse Practitioner Adult Health | DX: N30.01 Acute cystitis with hematuria (principal) ==

== ENCOUNTER 2021-08-10 13:13 | Outpatient (RCR) | payer MEDICARE | END 2021-08-12 | LOC: M PT 13:13 | PROVIDERS: ATTEND Physician Assistant Medical | DX: G20 Parkinson's disease (principal) ==

== ENCOUNTER 2021-08-27 08:30 | Outpatient (RCR) | payer MEDICARE ==
[~2021-08-27 08:30] MED LIST changes: +LOSA50TA28 PO; -LOSA50TA88 PO
== END 2021-09-11 ==
LOC: M PT 08:30
PROVIDERS: ATTEND Physician Assistant Medical
DX: G20 Parkinson's disease (principal); R53.1 Weakness

== ENCOUNTER → 2021-09-28 | Outpatient (REF) | payer MEDICARE ==
[2021-09-28 14:01] LABS: PERCENT SATURATION 19.5 % (19.7-50.0)
[2021-09-28 14:10] LABS: FOLATE 17.9 NG/ML
== END ==
LOC: M LAB REF 12:13
PROVIDERS: ATTEND Internal Medicine
DX: Z98.84 Bariatric surgery status (principal)

== ENCOUNTER → 2022-06-24 | Outpatient (REF) | payer MEDICARE ==
[~2022-06-24] MED LIST changes: -D31000TA2 PO; +VITA100093 PO
[2022-06-24 22:30] LABS: APPEARANCE, URINE MANUAL CLEAR (CLEAR); COLOR, URINE MANUAL YELLOW (YELLOW); SPECIFIC GRAVITY,URINE MANUAL 1.025 (1.002-1.035)
[2022-06-24 22:31] LABS: BILIRUBIN, URINE MANUAL NEGATIVE (NEGATIVE); BLOOD URINE MANUAL NEGATIVE (NEGATIVE); GLUCOSE, URINE (UA) MANUAL 4+(1000 MG/DL) mg/dL (NEGATIVE); KETONE, URINE MANUAL 1+ mg/dL (NEGATIVE); LEUKOCYTE ESTERASE, URINE MAN NEGATIVE (NEGATIVE); NITRITE, URINE MANUAL NEGATIVE (NEGATIVE); PROTEIN, URINE MANUAL NEGATIVE (NEGATIVE); UROBILINOGEN, URINE MANUAL NORMAL (NORMAL)
== END ==
LOC: M LAB REF 22:02
PROVIDERS: ATTEND Physician Assistant Medical
DX: R39.15 Urgency of urination (principal)

== ENCOUNTER → 2022-09-01 | Outpatient (REF) | payer MEDICARE ==
[2022-09-01 15:32] LABS: APPEARANCE, URINE MANUAL HAZY (CLEAR); BILIRUBIN, URINE MANUAL 1+ (NEGATIVE); BLOOD URINE MANUAL POSITIVE (NEGATIVE); COLOR, URINE MANUAL YELLOW (YELLOW); GLUCOSE, URINE (UA) MANUAL 4+(1000 MG/DL) mg/dL (NEGATIVE); KETONE, URINE MANUAL 1+ mg/dL (NEGATIVE); LEUKOCYTE ESTERASE, URINE MAN POSITIVE (NEGATIVE); NITRITE, URINE MANUAL NEGATIVE (NEGATIVE); PROTEIN, URINE MANUAL NEGATIVE (NEGATIVE); SPECIFIC GRAVITY,URINE MANUAL 1.015 (1.002-1.035); UROBILINOGEN, URINE MANUAL 1 MG mg/dl (NORMAL)
[2022-09-01 15:42] LABS: BACTERIA, URINE LARGE AMOUNT; HYALINE CAST, URINE NONE SEEN /lpf (0-1); SQUAMOUS EPITHELIAL CELL URINE NONE SEEN /hpf (SMALL AMT)
== END ==
LOC: M LAB REF 15:11
PROVIDERS: ATTEND Physician Assistant Medical
DX: N39.0 Urinary tract infection, site not specified (principal)

== ENCOUNTER → 2022-09-06 | Outpatient (REF) | payer MEDICARE ==
[2022-09-06 18:58] LABS: APPEARANCE, URINE MANUAL CLEAR (CLEAR); BILIRUBIN, URINE MANUAL NEGATIVE (NEGATIVE); BLOOD URINE MANUAL NEGATIVE (NEGATIVE); COLOR, URINE MANUAL YELLOW (YELLOW); GLUCOSE, URINE (UA) MANUAL 4+(1000 MG/DL) mg/dL (NEGATIVE); KETONE, URINE MANUAL NEGATIVE (NEGATIVE); LEUKOCYTE ESTERASE, URINE MAN NEGATIVE (NEGATIVE); NITRITE, URINE MANUAL NEGATIVE (NEGATIVE); PROTEIN, URINE MANUAL NEGATIVE (NEGATIVE); UROBILINOGEN, URINE MANUAL NORMAL (NORMAL)
== END ==
LOC: M LAB REF 17:42
PROVIDERS: ATTEND Physician Assistant
DX: N39.0 Urinary tract infection, site not specified (principal)

== ENCOUNTER → 2022-12-03 | Outpatient (REF) | payer MEDICARE ==
[2022-12-03 16:18] LABS: APPEARANCE, URINE HAZY (CLEAR); BACTERIA, URINE AUTO NEGATIVE (NEGATIVE); BILIRUBIN, URINE AUTO NEGATIVE (NEGATIVE); BLOOD, URINE BLOOD NEGATIVE (NEGATIVE); COLOR, URINE AMBER (YELLOW); GLUCOSE, URINE (UA) AUTO 3+ mg/dL (NEGATIVE); KETONE, URINE AUTO 1+ mg/dL (NEGATIVE); LEUKOCYTE ESTERASE, URINE AUTO TRACE (NEGATIVE); MUCUS, URINE SMALL (NEGATIVE); NITRITE, URINE AUTO NEGATIVE (NEGATIVE); PROTEIN, URINE AUTO NEGATIVE (NEGATIVE); RBC, URINE AUTO 2 /HPF (0-3); SPECIFIC GRAVITY URINE AUTO 1.035 (1.002-1.035); SQUAMOUS EPITHELIAL CELL UR AU 1 /HPF (0-6); WBC, URINE AUTO 22 /HPF (0-3)
== END ==
LOC: M SMT 15:28
PROVIDERS: ATTEND Urology
DX: N39.0 Urinary tract infection, site not specified (principal)

== ENCOUNTER → 2023-02-07 | Outpatient (REF) | payer MEDICARE ==
[2023-02-07 13:21] LABS: TOTAL 25(OH) VITAMIN D 32.3 NG/ML (20.0-100.0)
[2023-02-07 13:22] LABS: FOLATE 20.8 NG/ML (>5.4)
== END ==
LOC: M LAB REF 12:25
PROVIDERS: ATTEND Internal Medicine
DX: Z98.84 Bariatric surgery status (principal)

== ENCOUNTER → 2023-09-10 | Outpatient (REF) | payer MEDICARE ==
[2023-09-10 18:36] LABS: APPEARANCE, URINE CLEAR (CLEAR); BACTERIA, URINE AUTO NEGATIVE (NEGATIVE); BILIRUBIN, URINE AUTO NEGATIVE (NEGATIVE); BLOOD, URINE BLOOD NEGATIVE (NEGATIVE); COLOR, URINE YELLOW (YELLOW); GLUCOSE, URINE (UA) AUTO 3+ mg/dL (NEGATIVE); KETONE, URINE AUTO TRACE mg/dL (NEGATIVE); LEUKOCYTE ESTERASE, URINE AUTO NEGATIVE (NEGATIVE); MUCUS, URINE SMALL (NEGATIVE); NITRITE, URINE AUTO NEGATIVE (NEGATIVE); PROTEIN, URINE AUTO NEGATIVE (NEGATIVE); RBC, URINE AUTO 2 /HPF (0-3); SPECIFIC GRAVITY URINE AUTO 1.036 (1.002-1.035); SQUAMOUS EPITHELIAL CELL UR AU 1 /HPF (0-6); WBC, URINE AUTO 5 /HPF (0-3)
== END ==
LOC: M SMT 17:08
PROVIDERS: ATTEND Urology
DX: R35.0 Frequency of micturition (principal)

== ENCOUNTER → 2023-10-01 | Outpatient (REF) | payer MEDICARE ==
[2023-10-02 12:53] LABS: APPEARANCE, URINE CLEAR (CLEAR); BACTERIA, URINE AUTO NEGATIVE (NEGATIVE); BILIRUBIN, URINE AUTO NEGATIVE (NEGATIVE); BLOOD, URINE BLOOD NEGATIVE (NEGATIVE); COLOR, URINE YELLOW (YELLOW); GLUCOSE, URINE (UA) AUTO 3+ mg/dL (NEGATIVE); KETONE, URINE AUTO TRACE mg/dL (NEGATIVE); LEUKOCYTE ESTERASE, URINE AUTO NEGATIVE (NEGATIVE); MUCUS, URINE SMALL (NEGATIVE); NITRITE, URINE AUTO NEGATIVE (NEGATIVE); PROTEIN, URINE AUTO NEGATIVE (NEGATIVE); RBC, URINE AUTO 0 /HPF (0-3); SPECIFIC GRAVITY URINE AUTO 1.032 (1.002-1.035); SQUAMOUS EPITHELIAL CELL UR AU 2 /HPF (0-6); WBC, URINE AUTO 1 /HPF (0-3)
== END ==
LOC: M SMT 10:41
PROVIDERS: ATTEND Urology
DX: R10.9 Unspecified abdominal pain (principal)

== ENCOUNTER → 2024-02-23 | Outpatient (REF) | payer MEDICARE ==
[2024-02-23 13:35] LABS: APPEARANCE, URINE CLEAR (CLEAR); BACTERIA, URINE AUTO NEGATIVE (NEGATIVE); BILIRUBIN, URINE AUTO NEGATIVE (NEGATIVE); BLOOD, URINE BLOOD NEGATIVE (NEGATIVE); COLOR, URINE YELLOW (YELLOW); GLUCOSE, URINE (UA) AUTO 3+ mg/dL (NEGATIVE); KETONE, URINE AUTO TRACE mg/dL (NEGATIVE); LEUKOCYTE ESTERASE, URINE AUTO NEGATIVE (NEGATIVE); NITRITE, URINE AUTO NEGATIVE (NEGATIVE); PROTEIN, URINE AUTO NEGATIVE (NEGATIVE); RBC, URINE AUTO 1 /HPF (0-3); SPECIFIC GRAVITY URINE AUTO 1.029 (1.002-1.035); SQUAMOUS EPITHELIAL CELL UR AU 0 /HPF (0-6); WBC, URINE AUTO 1 /HPF (0-3)
== END ==
LOC: M SMT 12:43
PROVIDERS: ATTEND Physician Assistant
DX: R30.0 Dysuria (principal)

== ENCOUNTER → 2024-02-27 | Outpatient (REF) | payer MEDICARE ==
[2024-02-27 13:10] LABS: IRON (FE) 94 UG/DL (65-175); PERCENT SATURATION 28.1 % (19.7-50.0); PHOSPHORUS LEVEL 3.6 MG/DL (2.4-5.1); TOTAL IRON BINDING CAPACITY 334 UG/DL (250-425)
[2024-02-27 13:12] LABS: FERRITIN 17.2 NG/ML (10.5-307.3); FOLATE > 24.0 NG/ML (>5.4); TOTAL 25(OH) VITAMIN D 24.3 NG/ML (20.0-100.0)
[2024-02-27 13:22] LABS: VITAMIN B12 LEVEL > 2000 PG/ML (211-911)
[2024-03-04 16:13] LABS: VITAMIN A, RETINOL LEVEL 46.3 ug/dL (22.0-69.5)
== END ==
LOC: M LAB REF 12:09
PROVIDERS: ATTEND Internal Medicine
DX: Z98.84 Bariatric surgery status (principal); Z79.899 Other long term (current) drug therapy; Z86.39 Personal history of other endocrine, nutritional and metabolic disease

== ENCOUNTER → 2024-06-17 | Outpatient (CLI) | payer MEDICARE | LOC: M PLAIMG 13:40 | PROVIDERS: ATTEND Psychiatry & Neurology Neurology | DX: G20.A1 Parkinson's disease without dyskinesia, without mention of fluctuations (principal); G25.0 Essential tremor; R20.2 Paresthesia of skin ==

== ENCOUNTER 2024-07-21 10:17 | Day surgery (SDC) | payer MEDICARE ==
[~2024-07-21] VITALS: Ht 182.9 cm; Wt 106.8 kg
[~2024-07-21 10:17] MED LIST changes: +B-122500 PO; +BAYE81TA10 PO; +FURO20TA2 PO; +GNP250TA9 PO; +HYDR-3363 PO; +JARD1TAB PO; +LIDOCAINE 2% 100MG/5ML SDV (FOR ANES.) As Ordered ONE; +LOSA25TA13 PO; +OXYB15TA14 PO; +PHEN15CA6 PO; +POTA1TAB23 PO; +PRIM50TA6 PO; +SPIR-10 PO; +THERTAB52 PO; +VESI10TA2 PO; +XALA0.007 OD; +d mannose PO; +propofoL 200 MG/20 ML VIAL As Ordered ONE
[2024-07-21] MEDS: NS 250 ML IV ONE (10:41)
[2024-07-21 12:37] VITALS: TEMP 98
[2024-07-21 12:55] VITALS: BP 125/77; O2SAT 97
== END 2024-07-21 13:04 | disposition home or self-care (01) ==
LOC: M OPP 10:17
PROVIDERS: ATTEND Internal Medicine Gastroenterology
DX: Z12.11 Encounter for screening for malignant neoplasm of colon (principal); K64.0 First degree hemorrhoids; I10 Essential (primary) hypertension; E78.5 Hyperlipidemia, unspecified; E11.9 Type 2 diabetes mellitus without complications; Z80.0 Family history of malignant neoplasm of digestive organs; Z98.84 Bariatric surgery status; Z86.718 Personal history of other venous thrombosis and embolism; F10.10 Alcohol abuse, uncomplicated; Z88.2 Allergy status to sulfonamides; Z79.84 Long term (current) use of oral hypoglycemic drugs; Z79.899 Other long term (current) drug therapy

== ENCOUNTER → 2024-09-14 | Outpatient (REF) | payer MEDICARE ==
[~2024-09-14] MED LIST changes: -LIDOCAINE 2% 100MG/5ML SDV (FOR ANES.) As Ordered ONE; -propofoL 200 MG/20 ML VIAL As Ordered ONE
[2024-09-14 10:29] LABS: APPEARANCE, URINE CLEAR (CLEAR); BACTERIA, URINE AUTO NEGATIVE (NEGATIVE); BILIRUBIN, URINE AUTO NEGATIVE (NEGATIVE); BLOOD, URINE BLOOD NEGATIVE (NEGATIVE); COLOR, URINE STRAW (YELLOW); GLUCOSE, URINE (UA) AUTO 3+ mg/dL (NEGATIVE); KETONE, URINE AUTO NEGATIVE (NEGATIVE); LEUKOCYTE ESTERASE, URINE AUTO NEGATIVE (NEGATIVE); NITRITE, URINE AUTO NEGATIVE (NEGATIVE); PROTEIN, URINE AUTO NEGATIVE (NEGATIVE); RBC, URINE AUTO 0 /HPF (0-3); SPECIFIC GRAVITY URINE AUTO 1.009 (1.002-1.035); SQUAMOUS EPITHELIAL CELL UR AU 1 /HPF (0-6); UROBILINOGEN, URINE AUTO 0.2 mg/dL (0.0-2.0); WBC, URINE AUTO 0 /HPF (0-3)
== END ==
LOC: M SMT 10:03
PROVIDERS: ATTEND Physician Assistant
DX: R35.0 Frequency of micturition (principal)

== ENCOUNTER 2024-10-18 10:10 | Day surgery (SDC) | payer MEDICARE ==
[~2024-10-18] VITALS: Ht 182.9 cm; Wt 107.5 kg
[~2024-10-18 10:10] MED LIST changes: +NS 250 ML IV ONE
[2024-10-18] MEDS ORDERED: propofoL 200 MG/20 ML VIAL As Ordered ONE (11:42)
[2024-10-18] MEDS ORDERED: LIDOCAINE 2% 100MG/5ML SDV (FOR ANES.) As Ordered ONE (11:42)
[2024-10-18 12:00] VITALS: TEMP 99.5
[2024-10-18 12:21] VITALS: BP 140/74; O2SAT 96
== END 2024-10-18 12:26 | disposition home or self-care (01) ==
LOC: M OPP 10:10
PROVIDERS: ATTEND Internal Medicine Gastroenterology
DX: Z12.11 Encounter for screening for malignant neoplasm of colon (principal); Z80.0 Family history of malignant neoplasm of digestive organs; Z98.84 Bariatric surgery status; Z88.2 Allergy status to sulfonamides; Z79.84 Long term (current) use of oral hypoglycemic drugs; Z79.82 Long term (current) use of aspirin; Z79.899 Other long term (current) drug therapy

== ENCOUNTER → 2024-12-03 | Outpatient (REF) | payer MEDICARE ==
[~2024-12-03] MED LIST changes: -NS 250 ML IV ONE; +TAMS1CAP17 PO
[2024-12-03 15:15] LABS: APPEARANCE, URINE CLEAR (CLEAR); BACTERIA, URINE AUTO NEGATIVE (NEGATIVE); BILIRUBIN, URINE AUTO NEGATIVE (NEGATIVE); BLOOD, URINE BLOOD NEGATIVE (NEGATIVE); COLOR, URINE YELLOW (YELLOW); GLUCOSE, URINE (UA) AUTO 3+ mg/dL (NEGATIVE); KETONE, URINE AUTO NEGATIVE (NEGATIVE); LEUKOCYTE ESTERASE, URINE AUTO NEGATIVE (NEGATIVE); MUCUS, URINE SMALL (NEGATIVE); NITRITE, URINE AUTO NEGATIVE (NEGATIVE); PROTEIN, URINE AUTO NEGATIVE (NEGATIVE); RBC, URINE AUTO 0 /HPF (0-3); SPECIFIC GRAVITY URINE AUTO 1.011 (1.002-1.035); SQUAMOUS EPITHELIAL CELL UR AU 0 /HPF (0-6); WBC, URINE AUTO 0 /HPF (0-3)
== END ==
LOC: M SMT 12:52
PROVIDERS: ATTEND Urology
DX: N39.41 Urge incontinence (principal)

== ENCOUNTER 2024-12-13 08:01 | Day surgery (SDC) | payer MEDICARE ==
[~2024-12-13] VITALS: Ht 185.4 cm; Wt 111.1 kg
[~2024-12-13 08:01] MED LIST changes: +ceFAZolin SOD 2 GM in IV 1 EA IV ONE
[2024-12-13] MEDS: LR 1,000 ML IV SCH (08:49)
[2024-12-13] MEDS ORDERED: propofoL 200 MG/20 ML VIAL As Ordered ONE (08:57)
[2024-12-13] MEDS ORDERED: LIDOCAINE 2% 100MG/5ML SDV (FOR ANES.) As Ordered ONE (08:57)
[2024-12-13] MEDS ORDERED: fentaNYL 100 MCG/2 ML INJECTION As Ordered ONE (08:57)
[2024-12-13] MEDS ORDERED: MIDAZOLAM INJ 2MG/2ML VIAL As Ordered ONE (08:57)
[2024-12-13] MEDS: CIPROFLOXACIN 400 MG in IV 1 EA IV ONE (09:39)
[2024-12-13] MEDS: BOTOX THERAPEUTIC 100 UNIT VIAL As Ordered ONE (09:45)
[2024-12-13 10:42] VITALS: BP 138/71; TEMP 96.7; O2SAT 97
== END 2024-12-13 10:49 | disposition home or self-care (01) ==
LOC: M SDC 08:01
PROVIDERS: ATTEND Urology
DX: N39.41 Urge incontinence (principal); I10 Essential (primary) hypertension; E78.5 Hyperlipidemia, unspecified; E11.9 Type 2 diabetes mellitus without complications; G20.C Parkinsonism, unspecified; N40.0 Benign prostatic hyperplasia without lower urinary tract symptoms; Z79.899 Other long term (current) drug therapy
CPT/HCPCS: 52287; A4215; J0585; J0744; J2250; J3010

== ENCOUNTER → 2024-12-24 | Outpatient (REF) | payer MEDICARE ==
[~2024-12-24] MED LIST changes: -ceFAZolin SOD 2 GM in IV 1 EA IV ONE
[2024-12-24 14:03] LABS: APPEARANCE, URINE CLEAR (CLEAR); BACTERIA, URINE AUTO NEGATIVE (NEGATIVE); BILIRUBIN, URINE AUTO NEGATIVE (NEGATIVE); BLOOD, URINE BLOOD NEGATIVE (NEGATIVE); COLOR, URINE YELLOW (YELLOW); GLUCOSE, URINE (UA) AUTO 3+ mg/dL (NEGATIVE); KETONE, URINE AUTO NEGATIVE (NEGATIVE); LEUKOCYTE ESTERASE, URINE AUTO TRACE (NEGATIVE); MUCUS, URINE SMALL (NEGATIVE); NITRITE, URINE AUTO NEGATIVE (NEGATIVE); PROTEIN, URINE AUTO NEGATIVE (NEGATIVE); RBC, URINE AUTO 0 /HPF (0-3); SPECIFIC GRAVITY URINE AUTO 1.017 (1.002-1.035); SQUAMOUS EPITHELIAL CELL UR AU 1 /HPF (0-6); WBC, URINE AUTO 4 /HPF (0-3)
== END ==
LOC: M SMT 13:01
PROVIDERS: ATTEND Physician Assistant
DX: R30.0 Dysuria (principal)

== ENCOUNTER → 2025-01-21 | Outpatient (REF) | payer MEDICARE ==
[2025-01-21 16:39] LABS: APPEARANCE, URINE HAZY (CLEAR); BACTERIA, URINE AUTO 1+ (NEGATIVE); BILIRUBIN, URINE AUTO NEGATIVE (NEGATIVE); BLOOD, URINE BLOOD NEGATIVE (NEGATIVE); COLOR, URINE YELLOW (YELLOW); GLUCOSE, URINE (UA) AUTO 3+ mg/dL (NEGATIVE); KETONE, URINE AUTO NEGATIVE (NEGATIVE); LEUKOCYTE ESTERASE, URINE AUTO 1+ (NEGATIVE); NITRITE, URINE AUTO NEGATIVE (NEGATIVE); PROTEIN, URINE AUTO NEGATIVE (NEGATIVE); RBC, URINE AUTO 2 /HPF (0-3); SPECIFIC GRAVITY URINE AUTO 1.016 (1.002-1.035); SQUAMOUS EPITHELIAL CELL UR AU 0 /HPF (0-6); WBC, URINE AUTO 27 /HPF (0-3)
== END ==
LOC: M SMT 15:30
PROVIDERS: ATTEND Physician Assistant
DX: R39.9 Unspecified symptoms and signs involving the genitourinary system (principal)

== ENCOUNTER → 2025-02-14 | Outpatient (REF) | payer MEDICARE ==
[2025-02-14 17:36] LABS: APPEARANCE, URINE CLOUDY (CLEAR); BACTERIA, URINE AUTO 3+ (NEGATIVE); BILIRUBIN, URINE AUTO NEGATIVE (NEGATIVE); BLOOD, URINE BLOOD NEGATIVE (NEGATIVE); COLOR, URINE YELLOW (YELLOW); GLUCOSE, URINE (UA) AUTO 3+ mg/dL (NEGATIVE); KETONE, URINE AUTO TRACE mg/dL (NEGATIVE); LEUKOCYTE ESTERASE, URINE AUTO 2+ (NEGATIVE); NITRITE, URINE AUTO NEGATIVE (NEGATIVE); PROTEIN, URINE AUTO 1+ mg/dL (NEGATIVE); RBC, URINE AUTO 8 /HPF (0-3); SPECIFIC GRAVITY URINE AUTO 1.025 (1.002-1.035); SQUAMOUS EPITHELIAL CELL UR AU 2 /HPF (0-6); WBC, URINE AUTO TNTC /HPF (0-3)
== END ==
LOC: M SMT 17:00
PROVIDERS: ATTEND Physician Assistant
DX: R30.0 Dysuria (principal)

== ENCOUNTER → 2025-05-22 | Outpatient (REF) | payer MEDICARE | LOC: M LAB REF 18:10 | PROVIDERS: ATTEND Registered Nurse | DX: N39.0 Urinary tract infection, site not specified (principal) ==

== ENCOUNTER → 2025-05-31 | Outpatient (REF) | payer MEDICARE ==
[2025-05-31 17:14] LABS: APPEARANCE, URINE HAZY (CLEAR); BACTERIA, URINE AUTO NEGATIVE (NEGATIVE); BILIRUBIN, URINE AUTO NEGATIVE (NEGATIVE); BLOOD, URINE BLOOD NEGATIVE (NEGATIVE); GLUCOSE, URINE (UA) AUTO 3+ mg/dL (NEGATIVE); KETONE, URINE AUTO TRACE mg/dL (NEGATIVE); LEUKOCYTE ESTERASE, URINE AUTO TRACE (NEGATIVE); MUCUS, URINE SMALL (NEGATIVE); NITRITE, URINE AUTO NEGATIVE (NEGATIVE); PROTEIN, URINE AUTO NEGATIVE (NEGATIVE); RBC, URINE AUTO 2 /HPF (0-3); SPECIFIC GRAVITY URINE AUTO 1.031 (1.002-1.035); SQUAMOUS EPITHELIAL CELL UR AU 0 /HPF (0-6); UROBILINOGEN, URINE AUTO 4.0 mg/dL (0.0-2.0); WBC, URINE AUTO 46 /HPF (0-3)
== END ==
LOC: M SMT 16:34
PROVIDERS: ATTEND Physician Assistant
DX: R39.9 Unspecified symptoms and signs involving the genitourinary system (principal)

== ENCOUNTER → 2025-06-29 | Outpatient (CLI) | payer MEDICARE ==
[~2025-06-29] MED LIST changes: -VITA500T17 PO; +VITA500T8 PO
[2025-06-29 15:53] LABS: PSA SCREENING 1.90 NG/ML (< 4.00)
[2025-06-29 15:55] LABS: CALCIUM LEVEL 9.0 MG/DL (8.3-10.6); CARBON DIOXIDE LEVEL 28 MMOL/L (20-31); CHLORIDE LEVEL 101 MMOL/L (98-107); CREATININE FOR GFR 0.80 MG/DL (0.70-1.30); GLOMERULAR FILTRATION RATE > 90.0 (>42); POTASSIUM SERUM 4.1 MMOL/L (3.5-5.1); SODIUM LEVEL 136 MMOL/L (136-145)
== END ==
LOC: M PLALAB 12:57
PROVIDERS: ATTEND Physician Assistant
DX: N39.0 Urinary tract infection, site not specified (principal); Z12.5 Encounter for screening for malignant neoplasm of prostate
CPT/HCPCS: 36415; 80048; G0103